=== PATIENT | male | born 1990 | race Caucasian/White ===

== ENCOUNTER 2016-10-30 12:47 | Emergency (ER) | payer MEDICAID ==
[2016-10-30] MEDS ORDERED: IOPAMIDOL 370 (76%) IV.SOLN 150 ML IV ONE (12:48)
[2016-10-30] MEDS ORDERED: LACTATED RINGERS 1,000 ML ONE (14:00)
[2016-10-30 14:07] LABS: URINE BILIRUBIN NEGATIVE (NEGATIVE); URINE BLOOD 1+ (NEGATIVE); URINE GLUCOSE (UA) NEGATIVE (NEGATIVE); URINE LEUKOCYTE ESTERASE TRACE (NEGATIVE); URINE NITRITE NEGATIVE (NEGATIVE); URINE PROTEIN 1+ (NEGATIVE); URINE UROBILINOGEN NORMAL (0-1 mg/dl)
[2016-10-30 14:09] LABS: URINE APPEARANCE CLEAR; URINE COLOR AMBER
[2016-10-30 14:16] LABS: URINE BACTERIA FEW; URINE WBC 0-2 /hpf
[2016-10-30 14:19] LABS: AMPHETAMINES/METHAMPHETAMINES NEGATIVE (NEGATIVE); COCAINE NEGATIVE (NEGATIVE); MARIJUANA POSITIVE (NEGATIVE); METHADONE NEGATIVE (NEGATIVE); OPIATES NEGATIVE (NEGATIVE); TRICYCLIC ANTIDEPRESSANTS NEGATIVE (NEGATIVE)
[2016-10-30 14:30] LABS: ABSOLUTE NEUTROPHIL COUNT 3.6 K/mm3 (1.8-7.7); BASO % 0.8 % (0.2-1.0); EOS # 0.1 (0.0-0.5); EOS % 2.5 % (0.9-2.9); HEMATOCRIT 43.1 % (32.0-52.0); HEMOGLOBIN 14.8 gm/l (14.0-18.0); IMM NEUT% 0.6 % (0-1); LYMPH # 0.5 (1.0-4.8); LYMPH % 9.5 % (15-45); MEAN CELL VOLUME 87.1 fl (80.0-94.0); MEAN CORPUSCULAR HEMOGLOBIN 29.9 pg (27.0-31.0); MEAN CORPUSCULAR HGB CONC 34.3 g/dl (33.0-37.0); MEAN PLATELET VOLUME 10.5 fl (7.4-10.4); MONO # 0.5 (0.0-0.8); MONO % 11.1 % (4-12); NEUT % 75.5 % (43-75); PLATELET COUNT 90 K/mm3 (130-400); RED CELL DISTRIBUTION WIDTH 12.1 % (11.5-14.5)
[2016-10-30 14:38] LABS: ALB/GLOB RATIO 1.2 (>1.0); ALBUMIN 3.8 gm/dL (3.5-5.7); CALCIUM 8.8 mg/dL (8.6-10.3); MAGNESIUM 2.5 mg/dL (1.9-2.7)
[2016-10-30 15:23] LABS: INR 1.12; PROTHROMBIN TIME 11.9 SECONDS (9.3-11.4)
--- NOTE | 2016-10-30 15:45 | CT ---
EXAMINATION: CT angiogram of the thorax. Contrast enhanced CT scans of the abdomen and pelvis. CLINICAL INDICATION: Shortness of breath. Abdominal pain. COMPARISON: None TECHNIQUE: Oral contrast: None Following uneventful administration of 100 mL of Isovue 370, intravenously axial images were acquired from just above lung apices to the lung bases. A CT scan of the abdomen was acquired from the domes of the diaphragm to the iliac crest. A CT scan of the pelvis was also obtained from the iliac crest to the initial tuberosities. Stacked axial, sagittal, and coronal images were reviewed. Angiographic images of the thorax were acquired for enhancement of the pulmonary arteries. 3-D postprocessing was performed. Findings: Chest CT:(Contrast-enhanced) There are several basilar lung nodules. There is a 5 mm nodule abutting the pleural margin in the right upper lobe on image #25. Peripheral 3 mm nodule near the right middle lobe distribution on image #32. Right middle lobe nodule measuring 3 mm anteriorly image #44. Also on image #44 there is a lateral basilar 5 mm nodule as well. There is a 5 mm nodule in the lateral basilar segment of the left lower lobe on image #44. 3 mm nodule near the lingular distribution abutting the pleural margin on image #47 3 mm nodule lingular distribution on image #43 No calcified granulomas are identified. There is no pleural effusion. No pleural plaques or significant irregularities are identified. The thoracic inlet is within normal limits. No significant mediastinal or hilar lymphadenopathy is identified. The heart size is normal. There is no pericardial effusion. The pulmonary arteries are well opacified throughout. No emboli are identified. No vascular malformations are appreciated. The osseous structures are unremarkable. Abdomen CT: (Contrast-enhanced): The liver is unremarkable. The gallbladder is within normal limits. There is no evidence of biliary obstruction. There is splenomegaly. The long axis dimension approximates 16 cm. No abnormal enhancement is identified. The pancreas is normal in size and contours. No inflammatory stranding is identified. The pancreatic duct is unremarkable. The adrenals are unremarkable. The kidneys are without mass or hydronephrosis. No nephrolithiasis is identified. The abdominal aorta is unremarkable. Shotty periaortic lymph nodes are noted. No gross intra-abdominal adenopathy is appreciated. Please note no oral contrast was given. There is moderate constipation. The gastric lumen is grossly unremarkable. There is no free air or free fluid. The osseous structures are unremarkable. Pelvic CT: (Contrast -enhanced): The distal ureters and bladder are unremarkable. The prostate is normal in size. No adenopathy is identified. The distal abdominal aorta and iliac vessels are within normal limits. There is moderate constipation with moderate stool in the distribution of the colon. Fluid-filled loops of small bowel are noted. These are not markedly distended. The appendix is unremarkable. No displaced fractures are identified. There are no gross osteolytic or blastic lesions. The overlying soft tissues are unremarkable. IMPRESSION: 1. Multiple lung nodules none of which appear to exceed 6 cm in size. Based on current flexion or Society criteria if patient is low risk there is no need for follow-up. However patient is in a higher risk category,(s) CT scan in one year could be considered. No mediastinal or hilar adenopathy is appreciated. 2. No evidence of pulmonary embolus. 3. Splenomegaly. No disseminated intra-abdominal or intrapelvic adenopathy is currently identified. 4. Constipation. There are changes which may reflect mild enteritis. The findings were uploaded to the electronic medical record for review at approximately 3:47 PM 10/30/2016
[2016-10-30 15:46] LABS: BAND 21 % (0-10); BASOPHIL 0 % (0-1); EOSINOPHIL 3 % (1-3); LYMPHOCYTE 8 % (15-45); MONOCYTE 11 % (4-12); NEUTROPHILS 56 % (43-75); PLATELET ESTIMATE DECREASED (NORMAL); TOTAL CELLS COUNTED 100
--- NOTE | 2016-10-30 15:59 | US ---
EXAMINATION: Limited gallbladder ultrasound examination was performed. CLINICAL INDICATION: Right upper quadrant pain. COMPARISON: None FINDINGS: Gallbladder: Nondistended. 3.62 cm in length. Cholelithiasis:None Gallbladder wall thickness: 2 millimeters. Pericholecystic fluid: Absent Common bile duct:Not dilated and measures 6 millimeters. IMPRESSION: Mildly contracted gallbladder with no evidence of cholelithiasis, cholecystitis or biliary obstruction. The findings were uploaded to the electronic medical record for review at approximately 4:00 PM 10/30/2016
[2016-10-31 13:41] LABS: HEP B CORE AB, IGM Non React (Non React); HEPATITIS B SURFACE AG Non React (Non React); HEPATITIS C ANTIBODY Non React (Non React)
== END 2016-10-30 16:54 | disposition home or self-care (01) ==
LOC: ED 12:47
DX: M79.1 Myalgia (principal); R53.1 Weakness; E80.6 Other disorders of bilirubin metabolism; D69.6 Thrombocytopenia, unspecified; R74.0 Nonspecific elevation of levels of transaminase and lactic acid dehydrogenase [LDH]; D68.9 Coagulation defect, unspecified
CPT/HCPCS: 83690; 85379; 80307; 86705; 86709; 86803; 86340; 85025; 80305; 80053; 83735; 85610; 84443; 81001; 74177; 71275; 87804; 76705; 99284 ×2; 96360; 96361 ×2; 93005; J7120; Q9967